=== PATIENT | male | born 1945 | race Caucasian/White ===

== ENCOUNTER 2017-04-12 22:12 | Emergency (ER) | payer OTHER ==
[~2017-04-12] VITALS: Ht 165.1 cm; Wt 81.8 kg
[~2017-04-12 22:12] MED LIST: ASPI325T4 PO; CARV3.1260 PO; CLOP75TA27 PO; DICY10CA60 PO; FURO-110 PO; ONDA4TAB35 PO; RANI300T3 PO; SIMV40TA3 PO
[2017-04-12 22:19] VITALS: Ht 165.1 cm; Wt 81.8 kg
[2017-04-12] MEDS ORDERED: SOD CHLORIDE 0.9% 500 ML IV STA (22:40)
[2017-04-12] MEDS ORDERED: morphine 4 MG/ML VIAL IV STA (22:40)
[2017-04-12] MEDS ORDERED: ONDANSETRON 4 MG INJ IV STA (22:40)
[2017-04-12 23:05] LABS: BASOPHILS % 0.2 % (0.0-2.0); EOSINOPHILS % 0.5 % (0.0-7.0); HEMATOCRIT 43.3 % (42.0-52.0); LYMPHOCYTES # 1.7 10^3/ul (0.8-2.9); LYMPHOCYTES % 20.8 % (15.0-51.0); MEAN CORPUSCULAR HEMOGLOBIN 31.1 pg (29.0-33.0); MEAN CORPUSCULAR HGB CONC 34.6 g/dl (32.0-37.0); MEAN CORPUSCULAR VOLUME 89.6 fl (82.0-101.0); MEAN PLATELET VOLUME 10.8 fl (7.4-10.4); MONOCYTE # 0.7 10^3/ul (0.3-0.9); MONOCYTES % 9.1 % (0.0-11.0); NEUTROPHIL # 5.6 10^3/ul (1.6-7.5); NEUTROPHILS % 69.2 % (39.0-77.0); PLATELET COUNT 216 10^3/UL (140-415); RED BLOOD COUNT 4.83 10^6/ul (4.70-6.10); RED CELL DISTRIBUTION WIDTH 12.3 % (11.5-14.5)
[2017-04-12 23:19] LABS: INR 1.04; PROTIME 13.6 Sec (12.2-14.2); PT RATIO 1.1
[2017-04-12 23:20] LABS: PARTIAL THROMBOPLASTIN TIME 32.2 Sec (25.0-35.0)
[2017-04-12 23:21] LABS: ANION GAP 19 (8-16); BLOOD UREA NITROGEN 13 mg/dl (7-20); CALCIUM 9.2 mg/dl (8.4-10.2); CARBON DIOXIDE 23 mmol/L (21-31); CHLORIDE 106 mmol/L (97-110); CREATININE 1.08 mg/dl (0.61-1.24); GLUCOSE 179 mg/dl (70-220); SODIUM 144 mmol/L (135-144)
--- NOTE | 2017-04-12 23:23 | RADRPT ---
PROCEDURE: XR Chest. CLINICAL INDICATION: Headache. TECHNIQUE: PA and Lateral views of the chest were obtained. COMPARISON: 06/15/2015 FINDINGS: Cardiomegaly. Atherosclerotic calcifications in the thoracic aorta. Decreased lung inflation accen tuates pulmonary vascular markings, with mild pulmonary vascular congestion and mild bibasilar atele ctasis versus airspace disease. Calcified granuloma again seen at the right lung base. No signs o f pleural fluid or pneumothorax are seen. The osseous structures and soft tissues are unremarkable. IMPRESSION: Mild failure. RPTAT: [facility] Physician Nhan Date Time Electronically viewed and signed by Physician Nhan on 04/12/2017 23:23 RS/
[2017-04-12 23:35] LABS: TROPONIN-I < 0.012 ng/ml (0.00-0.12)
[2017-04-12] MEDS ORDERED: MULTI PO (23:39)
[2017-04-12] MEDS ORDERED: ATOR40TA68 PO (23:39)
--- NOTE | 2017-04-12 23:44 | RADRPT ---
PROCEDURE: CT BRAIN WITHOUT CONTRAST CLINICAL INDICATION: 71-year-old male with headaches. TECHNIQUE: The study was performed utilizing [employer] VCT 64-slice CT scanner. Direct axial sections were obtained from the foramen magnum to the vertex without the use of intravenous contrast material. Sagittal and coronal reformations were obtained. One or more the following dose reduction techniques were utilized: automated exposure control, adjustment of the mA and/or kV according to p atient's size or use of iterative reconstruction technique. The images were viewed on a PACS worksta tion. CTD/vol = 44.3 mGy; Total Exam DLP = 720.2 mGy-cm. COMPARISON: CT brain May 22, 2013. FINDINGS: There is mild degree of diffuse cortical and central atrophy with compensatory ventricular enlargeme nt. There is no evidence for mass effect or midline shift. There are periventricular areas of decr eased density consistent with microangiopathic ischemic changes. There is an ovoid right posterior temporal calcific density measuring approximately 5 x 6 x 5 mm in axial image 2-11. There is a left frontal calcific density on axial image 2-18 measuring approximately 4 x 30 x 3 mm. There is a rig ht superior frontal parasagittal cortical calcification on axial image 20 within 23 measuring 5 x 5 x 5 mm. 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 There is no evidence for acute intra or extra-axial blood. Minimal calcifications are seen within the intracranial carotid arteries bilaterally. The bony calvarium is intact. There i s mild mucosal thickening within the partially visualized ethmoid air cells. No air-fluid levels are noted. The mastoid air cells are without significant soft tissue. Calcification is identified within the ear cartilage bilaterally. IMPRESSION: 1. Mild diffuse atrophy. 2. Microangiopathic ischemic changes. 3. 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 4. Mild mucosal thickening partially visualized ethmoid air cells. .Brien Suarez MD, MD Date Time Electronically viewed and signed by .Brien Suarez MD, on 04/12/2017 23:43 .Kirby/
--- NOTE | 2017-04-13 01:16 | ERD ---
ER Documentation Chief Complaint Date/Time DATE: 04/13/17 TIME: 01:16 Chief Complaint HEADACHE AND DIZZINESS STARTING TODAY. DENIES CP/SOB HPI 71-year-old male here with complaint of headache and dizziness started today. No chest pain shortness breath. Started after he started taking Lasix yesterday. It is mild to moderate intensity. Nonfocal neurologically. No other current complaints. ROS All systems reviewed and are negative except as per history of present illness. Medications Home Meds Active Scripts Ondansetron Hcl* (Zofran* ODT) 4 mg -ODT Tab.disper, 4 MG PO Q6 Y for NAUSEA AND /OR VOMITING, #30 TAB Prov:MARTA AMEZQUITA MD 06/15/15 Dicyclomine Hcl* (Bentyl*) 10 Mg Capsule, 10 MG PO QID Y for abdominal pain, # 30 CAP Prov:MARTA AMEZQUITA MD 06/15/15 Reported Medications Multivitamins* (Theragran*) 1 Tab Tab, 1 TAB PO DAILY, TAB 04/12/17 Atorvastatin* (Atorvastatin*) 40 Mg Tablet, 40 MG PO QHS, #30 TAB 04/12/17 Furosemide* (Lasix*) 20 Mg Tablet, 20 MG PO DAILY, TAB 06/15/15 Clopidogrel Bisulfate (Clopidogrel) 75 Mg Tablet, 75 MG PO DAILY, TAB 06/15/15 Ranitidine Hcl* (Zantac*) 300 Mg Tablet, 300 MG PO HS, TAB 06/15/15 Carvedilol* (Carvedilol*) 3.125 Mg Tablet, 3.125 MG PO BID 05/21/13 Discontinued Reported Medications Aspirin* (Aspirin*) 325 Mg Tablet, 325 MG PO DAILY, TAB 06/15/15 Simvastatin (Simvastatin) 40 Mg Tablet, 40 MG PO DAILY 05/20/13 Allergies Allergies: Coded Allergies: paroxetine HCl (Verified Allergy, Unknown, 06/15/15) PMhx/Soc History of Surgery: Yes (HEART STENT, LIVER ABSCESS) Anesthesia Reaction: No Hx Neurological Disorder: No Hx Respiratory Disorders: No Hx Cardiac Disorders: Yes (HTN, HYPERLIPIDEMIA) Hx Psychiatric Problems: No Hx Miscellaneous Medical Probl: Yes (DM 2) Hx Alcohol Use: No Hx Substance Use: No Hx Tobacco Use: No Smoking Status: Never smoker Physical Exam Vitals Vital Signs Date Time Temp Pulse Resp B/P Pulse Ox O2 Delivery O2 Flow Rate FiO2 04/12/17 22:46 98.3 73 20 127/84 97 04/12/17 22:19 99.0 90 20 102/65 97 Physical Exam Const: [] Head: Atraumatic Eyes: Normal Conjunctiva ENT: Normal External Ears, Nose and Mouth. Neck: Full range of motion..~ No meningismus. Resp: Clear to auscultation bilaterally Cardio: Regular rate and rhythm, no murmurs Abd: Soft, non tender, non distended. Normal bowel sounds Skin: No petechiae or rashes Back: No midline or flank tenderness Ext: No cyanosis, or edema Neur: Awake and alert Psych: Normal Mood and Affect Result Diagram: 04/12/17223904/12/172239 Results 24 hrs Laboratory Tests Test 04/12/17 22:40 White Blood Count 8.010^3/ul Red Blood Count 4.8310^6/ul Hemoglobin 15.0g/dl Hematocrit 43.3% Mean Corpuscular Volume 89.6fl Mean Corpuscular Hemoglobin 31.1pg Mean Corpuscular Hemoglobin Concent 34.6g/dl Red Cell Distribution Width 12.3% Platelet Count 18858^3/UL Mean Platelet Volume 10.8fl Neutrophils % 69.2% Lymphocytes % 20.8% Monocytes % 9.1% Eosinophils % 0.5% Basophils % 0.2% Nucleated Red Blood Cells % 0.0/100WBC Neutrophils # 5.610^3/ul Lymphocytes # 1.710^3/ul Monocytes # 0.710^3/ul Eosinophils # 0.010^3/ul Basophils # 0.010^3/ul Nucleated Red Blood Cells # 0.010^3/ul Prothrombin Time 13.6Sec Prothrombin Time Ratio 1.1 INR International Normalized Ratio 1.04 Activated Partial Thromboplast Time 32.2Sec Sodium Level 144mmol/L Potassium Level 4.0mmol/L Chloride Level 106mmol/L Carbon Dioxide Level 23mmol/L Anion Gap 19 Blood Urea Nitrogen 13mg/dl Creatinine 1.08mg/dl Glucose Level 179mg/dl Calcium Level 9.2mg/dl Troponin I < 0.012ng/ml Current Medications Medications (Trade) Dose Ordered Sig/Reji Route PRN Reason Start Time Stop Time Status Last Admin Dose Admin Sodium Chloride (NS) 500 ml @ 500 mls/hr Q1H STAT IV 04/12/17 22:40 04/12/17 23:39 DC 04/12/17 22:59 Ondansetron HCl (Zofran Inj) 4 mg ONCE STAT IV 04/12/17 22:40 04/12/17 22:43 DC 04/12/17 22:59 Morphine Sulfate (morphine) 4 mg ONCE STAT IV 04/12/17 22:40 04/12/17 22:43 DC 04/12/17 23:00 Procedures/MDM EKG: Rate/Rhythm: Normal Sinus Rhythm QRS, ST, T-waves: No changes consistent w/ acute ischemia Impression: No evidence of ischemia or arrhythmia Chest X-ray 1V Interpreted by me: Soft Tissue: No acute abnormalities Bones: No acute abnormalities Mediastinum/Cardiac Silhouette/Lungs: No acute abnormalities Patient's neurologic symptoms have stabilized while they have been evaluated in the department and are appropriate for outpatient work up. No e/o meningitis, intracranial bleed, seizure, stroke. Departure Diagnosis: Primary Impression: Headache Headache type: unspecified Headache chronicity pattern: acute headache Intractability: not intractable Qualified Code: R51 - Acute nonintractable headache, unspecified headache type Condition: Stable Patient Instructions: Self-Care for Headaches ALANIS HAGER Apr 13, 2017 01:16
[2017-04-13 01:23] VITALS: BP 102/66; PULSE 81; RESP 18; TEMP 98.3
== END 2017-04-13 01:25 | disposition home or self-care (01) ==
LOC: E/R 22:12
DX: R51 Headache (principal); I10 Essential (primary) hypertension; E11.9 Type 2 diabetes mellitus without complications; Z79.82 Long term (current) use of aspirin; Z98.61 Coronary angioplasty status
CPT/HCPCS: 70450; 71010; 80048; 84484; 85025; 85610; 85730; 93005; J2270; J2405; J7040; 36415; 96374; 96375

== ENCOUNTER 2019-03-30 05:33 | Emergency (ER) | payer OTHER ==
[~2019-03-30] VITALS: Ht 165.1 cm; Wt 85.9 kg
[~2019-03-30 05:33] MED LIST changes: -ASPI325T4 PO; +ATOR40TA68 PO; +DICY10CA40 PO; -DICY10CA60 PO; +MULTI PO; -SIMV40TA3 PO
[2019-03-30 05:45] VITALS: Ht 165.1 cm; Wt 85.9 kg
[2019-03-30] MEDS ORDERED: ONDANSETRON 4 MG INJ IV STA (06:53)
[2019-03-30] MEDS ORDERED: SOD CHLORIDE 0.9% 1,000 ML IV STA (06:53)
--- NOTE | 2019-03-30 07:05 | ERD ---
ER Documentation Chief Complaint Chief Complaint abdominal pain/diarrhea since last night HPI This is a 73-year-old male with a past medical history of hypertension, hyperlipidemia, coronary artery disease status post stenting, heart failure, GERD, diverticulosis, previous liver abscess status post IR drainage who is presenting with waxing and waning moderate generalized cramping abdominal pain with associated nausea but no vomiting and several episodes of loose watery brown nonbloody diarrhea, beginning at 2 AM this morning. The patient denies any constipation. He denies black or bloody or tarry stools. He denies dysuria or hematuria or urgency or frequency. The patient reports eating chicken and salad last night. He does not report eating anything out of the ordinary. The patient does not endorse any other alleviating or exacerbating factors. The patient denies fever or chills. The patient has had no headache or vision changes. The patient does not endorse neck or back pain. The patient denies lightheadedness or dizziness. The patient has had no chest pain or trouble breathing. The patient has had no focal deficits. The patient has had no weakness or numbness or tingling to the face or extremities. ROS All systems reviewed and are negative except as per history of present illness. Medications Home Meds Active Scripts Ondansetron Hcl* (Zofran* ODT) 4 mg -ODT Tab.disper, 4 MG PO Q6 PRN for NAUSEA AND/OR VOMITING, #30 TAB Prov:MARTA AMEZQUITA MD 06/15/15 Dicyclomine HCl (Dicyclomine HCl) 10 Mg Capsule, 10 MG PO QID PRN for abdominal pain, #30 CAP Prov:MARTA AMEZQUITA MD 06/15/15 Reported Medications Multivitamins* (Theragran*) 1 Tab Tab, 1 TAB PO DAILY, TAB 04/12/17 Atorvastatin* (Atorvastatin*) 40 Mg Tablet, 40 MG PO QHS, #30 TAB 04/12/17 Furosemide* (Lasix*) 20 Mg Tablet, 20 MG PO DAILY, TAB 06/15/15 Clopidogrel Bisulfate (Clopidogrel) 75 Mg Tablet, 75 MG PO DAILY, TAB 06/15/15 Ranitidine Hcl* (Zantac*) 300 Mg Tablet, 300 MG PO HS, TAB 06/15/15 Carvedilol* (Carvedilol*) 3.125 Mg Tablet, 3.125 MG PO BID 05/21/13 Allergies Allergies: Coded Allergies: paroxetine HCl (Verified Allergy, Unknown, 06/15/15) PMhx/Soc History of Surgery: Yes (HEART STENT, LIVER ABSCESS) Anesthesia Reaction: No Hx Neurological Disorder: No Hx Respiratory Disorders: No Hx Cardiac Disorders: Yes (Hypertension, hyperlipidemia, diabetes, coronary artery disease status post stenting) Hx Psychiatric Problems: No Hx Miscellaneous Medical Probl: No Hx Alcohol Use: No Hx Substance Use: No Hx Tobacco Use: No FmHx Family History: diabetes Physical Exam Vitals Vital Signs Date Temp Pulse Resp B/P (MAP) Pulse Ox O2 O2 Flow FiO2 Time Delivery Rate 03/30/19 97.2 75 18 147/78 96 05:45 (101) Physical Exam Const: No acute distress Head: Atraumatic Eyes: Normal Conjunctiva ENT: Normal External Ears, Nose and Mouth. Neck: Full range of motion. No meningismus. Resp: Clear to auscultation bilaterally Cardio: Regular rate and rhythm, no murmurs Abd: Soft, non distended. General abdominal discomfort without any exquisite tenderness. No guarding or rebound. Normal bowel sounds Skin: No petechiae or rashes Back: No midline or flank tenderness Ext: No cyanosis, or edema Neur: Awake and alert Psych: Normal Mood and Affect Result Diagram: 03/30/19 0710 03/30/19 0710 Results 24 hrs Laboratory Tests Test 03/30/19 07:10 03/30/19 09:30 03/30/19 09:39 White Blood Count 7.5 10^3/ul Red Blood Count 5.66 10^6/ul Hemoglobin 17.6 g/dl Hematocrit 50.7 % Mean Corpuscular Volume 89.6 fl Mean Corpuscular Hemoglobin 31.1 pg Mean Corpuscular 34.7 g/dl Hemoglobin Concent Red Cell Distribution Width 11.9 % Platelet Count 196 10^3/UL Mean Platelet Volume 10.8 fl Immature Granulocytes % 0.400 % Neutrophils % 76.1 % Lymphocytes % 15.3 % Monocytes % 7.4 % Eosinophils % 0.4 % Basophils % 0.4 % Nucleated Red Blood Cells % 0.0 /100WBC Immature Granulocytes # 0.030 10^3/ul Neutrophils # 5.7 10^3/ul Lymphocytes # 1.1 10^3/ul Monocytes # 0.6 10^3/ul Eosinophils # 0.0 10^3/ul Basophils # 0.0 10^3/ul Nucleated Red Blood Cells # 0.0 10^3/ul Prothrombin Time 12.5 Sec Prothrombin Time Ratio 1.0 INR International 0.92 Normalized Ratio Sodium Level 139 mmol/L Potassium Level 4.5 mmol/L Chloride Level 104 mmol/L Carbon Dioxide Level 25 mmol/L Anion Gap 10 Blood Urea Nitrogen 18 mg/dl Creatinine 0.87 mg/dl Est Glomerular Filtrat mL/min Rate mL/min Glucose Level 399 mg/dl Calcium Level 9.6 mg/dl Total Bilirubin 0.6 mg/dl Direct Bilirubin 0.00 mg/dl Indirect Bilirubin 0.6 mg/dl Aspartate Amino 60 IU/L Transf (AST/SGOT) Alanine 88 IU/L Aminotransferase (ALT/SGPT) Alkaline Phosphatase 139 IU/L Troponin I < 0.012 ng/ml Total Protein 7.6 g/dl Albumin 4.4 g/dl Globulin 3.20 g/dl Albumin/Globulin Ratio 1.37 Lipase 94 U/L Urine Color STRAW Urine Clarity CLEAR Urine pH 7.0 Urine Specific Beggs 1.052 Urine Ketones NEGATIVE mg/dL Urine Nitrite NEGATIVE mg/dL Urine Bilirubin NEGATIVE mg/dL Urine Urobilinogen NEGATIVE mg/dL Urine Leukocyte Esterase NEGATIVE Jeffery/ul Urine Hemoglobin NEGATIVE mg/dL Urine Glucose 3+ mg/dL Urine Total Protein NEGATIVE mg/dl Bedside Glucose 279 mg/dL Current Medications Medications Dose Sig/Reji Start Time Status Last (Trade) Ordered Route PRN Stop Time Admin Dose Reason Admin Sodium 1,000 ml @ Q1H STAT 03/30/19 DC 03/30/19 Chloride 1,000 mls/hr IV 06:53 07:15 03/30/19 07:52 Ondansetron 4 mg ONCE STAT 03/30/19 DC 03/30/19 HCl (Zofran IV 06:53 07:15 Inj) 03/30/19 06:56 Dicyclomine 10 mg ONCE ONCE 03/30/19 DC 03/30/19 HCl IM 07:30 07:23 (Bentyl) 03/30/19 07:31 IV Flush 10 ml STK-MED 03/30/19 DC 03/30/19 (NS 10 ml) ONCE .ROUTE 08:11 08:43 03/30/19 08:12 Sodium 100 ml @ ud STK-MED 03/30/19 DC 03/30/19 Chloride ONCE .ROUTE 08:11 08:43 03/30/19 08:12 Iohexol 150 ml STK-MED 03/30/19 DC 03/30/19 (Omnipaque ONCE .ROUTE 08:11 08:44 300mg/ ml) 03/30/19 08:12 Insulin 10 unit ONCE ONCE 03/30/19 DC Human SC 09:30 Regular 03/30/19 09:31 (Humulin R) Procedures/MDM MDM The patient's presentation warrants further investigation. Previous medical records, if available, were reviewed. LABS The patient's laboratory testing was obtained and reviewed. No emergent treatment was required unless described below. CBC: No E/o systemic infection or severe anemia or thrombocytopenia Chemistry: No E/o severe acidosis or alkalosis or renal failure. Hyperglycemia without diabetic ketoacidosis. Mild transaminitis, not emergent. Lipase: No E/o pancreatitis PT/INR: No E/o significant coagulopathy Troponin: No E/o acute ischemia Urine: No E/o acute infection or hematuria. Glucosuria, no ketonuria. EKG EKG read by me: Rate/Rhythm: Regular rate and rhythm at a rate of 76 bpm Intervals: Normal Shunk: Normal Impression: No evidence of acute ischemia or arrhythmia IMAGING Imaging and Radiology interpretation reviewed. CT abd/pelvis COMPARISON: CT 06/15/2015 FINDINGS: Lower thorax: There are a few stable small nodular opacities in the left lung base measuring up to 4 mm, likely benign. Calcified granuloma in the right lower lobe. Stable subsegmental atelectasis and volume loss of the right middle lobe. Mild pleural parenchymal scarring along the right fissures. There are coronary artery calcifications. Liver: Diffuse hypoattenuation of the liver suggestive of hepatic steatosis. Portal vein is patent. Biliary: Gallbladder is normal. No intrahepatic or extrahepatic biliary dilatation. Pancreas: Normal. Spleen: Normal. Adrenal Glands: Normal. Urinary: Small 7 mm cyst at the lower pole left kidney. Otherwise unremarkable. Gastrointestinal: Stomach and small bowel are within normal limits. Appendix is unremarkable. There are descending and sigmoid colonic diverticula without evidence of diverticulitis. No bowel wall thickening or inflammatory changes. No evidence of bowel obstruction. Lymph nodes: No enlarged abdominal or pelvic lymph nodes. Vascular: There are atherosclerotic calcifications of the aorta and iliac branches, without evidence of aneurysm. Peritoneum/mesentery: No free fluid or free air. Reproductive organs: Normal. Musculoskeletal: Mild degenerative changes of the spine. IMPRESSION: 1. No CT evidence of mass, lymphadenopathy, or acute inflammatory process. 2. Descending colon and sigmoid colon diverticulosis without evidence of diverticulitis. 3. Hepatic steatosis. Electronically viewed and signed by Baldev Ralph Physician on 03/30/2019 09:08 TREATMENT/DISPOSITION The patient presents with abdominal pain, nausea and diarrhea. Gastroenteritis is certainly a possibility, but this is a diagnosis of exclusion. A full abdominal work-up was completed including a CT scan which did not reveal any acute emergent intra-abdominal process. The patient does have diverticulosis but no evidence of diverticulitis. The patient does have hepatic steatosis and a mild transaminitis which may be worked up in an outpatient setting. The pa tient does not have any evidence of peritonitis. The patient does not have clinical symptoms concerning for mesenteric ischemia or ischemic colitis. The patient does not have right upper quadrant tenderness, and I have low suspicion for gallstones, cholecystitis or biliary colic. The patient does not have any epigastric pain. I have low suspicion for gastritis, PUD or GERD. The patient does not have left upper quadrant tenderness. I have low suspicion for pancreatitis. The patient does not have any right lower quadrant tenderness, or periumbilical tenderness. I have low suspicion for appendicitis. The patient does not have suprapubic tenderness. I have decreased suspicion for cystitis. The patient does not have any flank tenderness. The patient does not have gross hematuria. I have decreased suspicion for nephrolithiasis or renal colic. The patient does not have any palpable pulsatile mass or severe abdominal pain radiating to the back. I have low suspicion for aortic aneurysm, dissection or rupture. The patient is hyperglycemic as well. He was given IV fluids with improvement of the blood sugar to nonemergent levels. The patient's elevated blood sugar could be related to his abdominal symptoms. He may follow-up with his primary care physician for longitudinal management. The patient was ordered insulin, but it was ultimately not given as the IV fluids appropriately decreased his sugar. The patient does not have symptoms concerning for gastroparesis. The patient was treated with IV fluids, Zofran and Bentyl. DISCHARGE Upon reevaluation of the patient, symptoms have improved. No emergent diagnoses were identified. At this time, I feel that the patient stable for discharge. The patient was instructed to follow-up with a primary care physician in 1-3 days. The patient will be given strict precautions with which to return to the emergency department. Prescriptions: Zofran The patient's blood pressure was elevated at greater than 120/80 while in the em ergency department. The patient was otherwise stable with no evidence of hypertensive urgency or emergency. The patient does not require admission for blood pressure control. I have discussed with the patient the risks of hypertension. I have instructed the patient to return to the ER for any new or worsening symptoms including chest pain, shortness of breath, headache, blurred vision, confusion, nausea, vomiting or LOC. I have advised the patient to follow up with the primary care physician for outpatient monitoring and treatment for hypertension in 1-3 days. Disclaimer: Inadvertent spelling and grammatical errors are likely due to EHR/dictation software use and do not reflect on the overall quality of patient care. Note that the electronic time recorded on this note does not necessarily reflect the actual time of the patient encounter. Departure Diagnosis: Primary Impression: Diarrhea Diarrhea type: unspecified type Qualified Codes: R19.7 - Diarrhea, unspecified Additional Impressions: Nausea Abdominal pain Abdominal location: unspecified location Qualified Codes: R10.9 - Unspecified abdominal pain Hyperglycemia Transaminitis Hepatic steatosis Condition: Stable Patient Instructions: Self-Care for Vomiting and Diarrhea, Abdominal Pain, Hyperglycemia (High Blood Sugar) Additional Instructions: Thank you for for coming to [facility] for your care today. Please ask your nurse or provider if you have questions about your care today and do not leave until all your questions have been answered. Please use any medications given as directed and follow-up with your doctor (or the doctor you were referred to) in the next 1-3 days. If you do not have a primary care doctor you may follow up at the [facility] or [facility] clinic (listed below). You may also use motrin and tylenol as needed for fever and/or pain unless instructed otherwise by your provider or nurse. Indications for more urgent follow-up have been discussed, but you may return to the Emergency Department at ANY time for any worrisome or worsening symptoms. If you have abdominal pain, please know that no test or exam you received is p erfect and you should follow up within 8 hours for continued pain. If you had any imaging studies today, such as an X-Ray or CT Scan, these studies will be reviewed later by a radiologist. You will be called if there are important findings that were not identified today, so make sure the contact in formation you provided at registration is correct. If you received any narcotic pain control medicine today, such as Vicodin, Morphine or Dilaudid, your coordination and judgment may be affected for a number of hours. Please do not drive or operate heavy machinery, and you may want someone to assist you at home. If you were given a prescription for narcotic medication, be aware that it is very addictive- use sparingly and only if necessary. PLEASE SEEK FURTHER EVALUATION AND MANAGEMENT AT YOUR DOCTORS OFFICE WITHIN THE NEXT 1-3 DAYS. IT IS YOUR RESPONSIBILITY TO MAKE AN APPOINTMENT FOR FOLOW-UP CARE. IF YOU HAVE A PRIMARY DOCTOR, PLEASE CALL THEIR OFFICE TO SCHEDULE AN APPOINTMENT FOR FOLLOW UP. IF YOU DO NOT HAVE A PRIMARY DOCTOR YOU CAN CALL OUR PHYSICIAN REFERRAL HOTLINE AT IF YOU CAN NOT AFFORD TO SEE A PHYSICIAN YOU CAN CHOSE FROM THE FOLLOWING [facility] CLINICS: [facility] [address]. [facility] [address] [facility] [facility] [address] [facility] [facility] [facility] [address] [facility]. [facility] [address] [facility]. [facility]. [address] ALICIA ESTRELLA MD Mar 30, 2019 07:05
[2019-03-30] MEDS ORDERED: DICYCLOMINE 20 MG INJ IM ONE (07:30)
[2019-03-30] MEDS ORDERED: SOD CHLORIDE 0.9% 100 ML ONE (08:11)
[2019-03-30] MEDS ORDERED: IOHEXOL 300MG/ML 150 ML BTL ONE (08:11)
[2019-03-30] MEDS ORDERED: INSULIN REGULAR, HUMAN 100 UNIT/1 ML 3ML VIAL SC ONE (09:30)
[2019-03-30] MEDS ORDERED: ONDA4TAB8 PO (10:18)
[2019-03-30 10:28] VITALS: BP 137/79; PULSE 71; RESP 16
== END 2019-03-30 10:30 | disposition home or self-care (01) ==
LOC: E/R 05:33
DX: K76.0 Fatty (change of) liver, not elsewhere classified (principal); R19.7 Diarrhea, unspecified; R11.0 Nausea; R74.0 Nonspecific elevation of levels of transaminase and lactic acid dehydrogenase [LDH]; I10 Essential (primary) hypertension; E11.65 Type 2 diabetes mellitus with hyperglycemia; I25.10 Atherosclerotic heart disease of native coronary artery without angina pectoris
CPT/HCPCS: 36415; 74177; 80053; 81003; 82962; 83690; 84484; 85025; 85610; 93005; 96372; 96374; 99285; J0500; J1815; J2405; J7030; Q9967